=== PATIENT | male | born 1980 | race Caucasian/White ===

== ENCOUNTER → 2017-10-26 | Outpatient (CLI) | payer BC ==
[~2017-10-26] MED LIST: ADRENACLIC0.15 MG/0. IM; AMOXICILLIN875 MG PO; GABAPENTIN; MEDROLDOSEPACK PO; NAPROSYN375 MG PO; NOHOMEMEDICATIONS; NORCO 5-325 TA1 EACH PO; OXYCONTIN CR 8080 M1 PO; PREDNISONE 10 M10 MG PO; VICODIN 5-5001 EACH; VISTARIL 25 MG25 M1 OR
== END ==
LOC: M.MRI 17:02
DX: M17.12 Unilateral primary osteoarthritis, left knee (principal); G89.29 Other chronic pain; J30.89 Other allergic rhinitis; R35.0 Frequency of micturition

== ENCOUNTER → 2017-11-16 | Outpatient (CLI) | payer BC ==
[2017-11-16 16:11] LABS: CREATININE 1.1 mg/dL (0.6-1.3)
== END ==
LOC: M.LAB 15:30 → M.CT 16:30
PROVIDERS: Internal Medicine
DX: D86.9 Sarcoidosis, unspecified (principal); R89.9 Unspecified abnormal finding in specimens from other organs, systems and tissues

== ENCOUNTER 2018-06-07 16:15 | Emergency (ER) | payer BC ==
[~2018-06-07] VITALS: Ht 170.2 cm; Wt 99.8 kg
[2018-06-07] MEDS ORDERED: IBUPROFEN 800800 M1 PO (16:23)
[2018-06-07] MEDS ORDERED: CLARITIN10 MG PO (16:23)
[2018-06-07] MEDS ORDERED: ROBAXIN 750 MG750 M1 PO (18:16)
[2018-06-07] MEDS ORDERED: NORCO 5-325 TA1 EACH PO (18:16)
[2018-06-07] MEDS ORDERED: ONDANSETRON HCL4 M2 PO (18:16)
[2018-06-07 18:34] VITALS: BP 135/85
== END 2018-06-07 18:35 | disposition home or self-care (01) ==
LOC: M.ERS 16:15
DX: S06.0X0A Concussion without loss of consciousness, initial encounter (principal); S13.8XXA Sprain of joints and ligaments of other parts of neck, initial encounter; S93.692A Other sprain of left foot, initial encounter; S63.592A Other specified sprain of left wrist, initial encounter; S70.02XA Contusion of left hip, initial encounter; F17.210 Nicotine dependence, cigarettes, uncomplicated; J45.909 Unspecified asthma, uncomplicated; V69.40XA Driver of heavy transport vehicle injured in collision with unspecified motor vehicles in traffic accident, initial encounter; Y93.89 Activity, other specified; Y92.89 Other specified places as the place of occurrence of the external cause; Y99.8 Other external cause status